=== PATIENT | female | born 1950 | race Caucasian/White ===

== ENCOUNTER 2017-03-18 17:19 | Emergency (ER) | payer BC, OTHER ==
[~2017-03-18] VITALS: Ht 165.1 cm; Wt 70.0 kg
[~2017-03-18 17:19] MED LIST: B/P MED; ESTR.625 PO; PAIN MEDS
[2017-03-18 17:27] VITALS: BP 103/50; PULSE 66; O2SAT 96
[2017-03-18] MEDS ORDERED: SODIUM CHLOR 0.9% 1000 ML INJ 1,000 ML IV SCH (18:08)
[2017-03-18] MEDS ORDERED: ACETAMINOPHEN 500 MG CPLT PO ONE (18:15)
[2017-03-18] MEDS ORDERED: SODIUM CHLORIDE 0.9% FLUSH 10 ML FLUSH IV FLUSH PRN (18:15)
[2017-03-18] MEDS ORDERED: ONDANSETRON HCL 4 MG/2 ML VIAL IV PUSH ONE (18:15)
[2017-03-18] MEDS ORDERED: TETANUS/DIPHTHERIA TOXOID ADULT 0.5 ML VIAL IM ONE (18:15)
[2017-03-18] MEDS ORDERED: LIDOCAINE HCL 1% 50 ML VIAL INFIL ONE (18:15)
[2017-03-18 18:19] VITALS: BP 95/63; PULSE 65; O2SAT 93
[2017-03-18] MEDS ORDERED: AMLO2.5T PO (18:20)
[2017-03-18] MEDS ORDERED: BUPR100CR PO (18:20)
[2017-03-18] MEDS ORDERED: LEVO25TA4 PO (18:20)
[2017-03-18] MEDS ORDERED: WARF-23 PO (18:20)
[2017-03-18] MEDS ORDERED: METO25TA3 PO (18:20)
[2017-03-18] MEDS ORDERED: LISI2.5T3 PO (18:20)
[2017-03-18] MEDS ORDERED: LEXA20TA PO (18:20)
[2017-03-18] MEDS ORDERED: NEXI40CA PO (18:20)
--- NOTE | 2017-03-18 18:23 | PD ---
HPI Chief Complaint: Fall Time Seen by Provider: 18:00 Travel History International Travel<30 days: No Contact w/Intl Traveler<30days: No Traveled to known affect area: No History of Present Illness HPI Patient comes in for evaluation status post slip and fall at home. Patient states she was rinsing conditioner out of her hair falling backwards hitting her head. Patient complaining of headache, dizziness, and tailbone pain. Patient thinks she may have lost consciousness briefly after hitting her head. Patient denies any neck pain, chest pain pre-or post fall, shortness of breath, nausea or tingling anywhere, nausea, vomiting, abdominal pain, loss of bowel or bladder, or numbness or tingling anywhere. Patient states she is on Coumadin less and had her INR checked last 2 weeks ago found be 1.6. Patient reports her last tetanus shot was proximal to 7 years ago. Patient tried washing her hair prior to coming to the emergency department and went to an urgent care and was redirected to the emergency department. PFSH Past Medical History Hx Anticoagulant Therapy: Yes (coumadin) Atrial Fibrillation: Yes Cardiovascular Problems: Yes (afib) Hypertension: Yes Tetanus Vaccination: > 5 Years Tubal Ligation: Yes Past Surgical History Appendectomy: Yes Cholecystectomy: Yes Coronary Artery Bypass Graft: Yes (x2 ) Hysterectomy: Yes Social History Alcohol Use: Yes (occ) Tobacco Use: Yes (occ) Substance Use: No Allergies-Medications (Allergen,Severity, Reaction): Coded Allergies: No Known Allergies (Unverified , 03/18/17) Reported Meds & Prescriptions Reported Meds & Active Scripts Active Reported Nexium (Esomeprazole DR) 40 Mg Capdr 40 Mg PO DAILY Wellbutrin SR 12 HR (Bupropion HCl) 100 Mg Tab 100 Mg PO Q12HR Lexapro (Escitalopram Oxalate) 20 Mg Tab 20 Mg PO DAILY Amlodipine (Amlodipine Besylate) 2.5 Mg Tab Unknown Dose PO DAILY Levothyroxine (Levothyroxine Sodium) 25 Mcg Tab 25 Mcg PO DAILY Warfarin 5 Mg Tab 5 Mg PO DAILY Lisinopril 2.5 Mg Tab Unknown Dose PO DAILY Metoprolol Tartrate 25 Mg Tab 25 Mg PO DAILY [Pain Meds] [B/P Med] DAILY Review of Systems Except as stated in HPI: all other systems reviewed are Neg Physical Exam Narrative GENERAL: Well-developed, well nourished, in no acute distress, and non-ill appearing. SKIN: Left occipital lobe laceration. He skin tears noted bilateral upper extremities that are nonrepairable. HEAD: Atraumatic. Normocephalic. EYES: Pupils equal and round. EOMI. No scleral icterus. No injection or drainage. ENT: No nasal bleeding or discharge. Mucous membranes pink and moist. NECK: Trachea midline. No midline tenderness or crepitus of the cervical spine. Supple. No nuclear rigidity. CARDIOVASCULAR: Regular rate and rhythm. No murmur appreciated. RESPIRATORY: No accessory muscle use. No respiratory distress. Clear to auscultation. Breath sounds equal bilaterally. MUSCULOSKELETAL: No obvious deformities. No clubbing. No cyanosis. No edema. Full range of motion. Shoulder:FROM equal BL with passive flexion, extension, Abduction, Adduction, internal/external rotation, and pronation/supination. Sensation equal BL deltoid muscles. Pulses equal BL distal to injury. Capillary refill less than 2 seconds distal to injury and equal BL. FROM distal to injury and equal BL. Strength distal to injury equal BL. NV intact distal to injury equal BL. Flexion and extension of thumb equal BL. Equal strength and movement with abduction/adductions of BL fingers. Teacher Associate strength equal BL. Patient reports tenderness over sacrum. There is no bruising or crepitus. No tenderness or crepitus throughout the spinal column. NEUROLOGICAL: Awake and alert. No obvious cranial nerve deficits. Motor grossly within normal limits. Normal speech. PSYCHIATRIC: Appropriate mood and affect; insight and judgment normal. Data Data Last Documented VS Vital Signs Date Time Temp Pulse Resp B/P Pulse Ox O2 Delivery O2 Flow Rate FiO2 03/18/17 20:18 65 20 114/69 94 Room Air Orders Basic Metabolic Panel (Bmp) (03/18/17 18:08) Complete Blood Count With Diff (03/18/17 18:08) Prothrombin Time / Inr (Pt) (03/18/17 18:08) Act Partial Throm Time (Ptt) (03/18/17 18:08) Iv Access Insert/Monitor (03/18/17 18:08) Ecg Monitoring (03/18/17 18:08) Oximetry (03/18/17 18:08) Sodium Chlor 0.9% 1000 Ml Inj (Ns 1000 M (03/18/17 18:08) Sodium Chloride 0.9% Flush (Ns Flush) (03/18/17 18:15) Ondansetron Inj (Zofran Inj) (03/18/17 18:15) Acetaminophen (Tylenol) (03/18/17 18:15) Ct Brain W/O Iv Contrast(Rout) (03/18/17 ) Ct Cerv Spine W/O Contrast (03/18/17 ) Apply Cervical Collar (03/18/17 18:08) Tetanus/Diphtheria Tox Adult (Tetanus/Di (03/18/17 18:15) Lidocaine 1% Inj (50 Ml) (Xylocaine 1% I (03/18/17 18:15) Sacrum And Coccyx (03/18/17 ) Alcohol (Ethanol) (03/18/17 19:09) Labs Laboratory Tests Test 03/18/17 19:08 White Blood Count 12.2 TH/MM3 Red Blood Count 3.78 MIL/MM3 Hemoglobin 12.3 GM/DL Hematocrit 36.7 % Mean Corpuscular Volume 96.9 FL Mean Corpuscular Hemoglobin 32.4 PG Mean Corpuscular Hemoglobin 33.4 % Concent Red Cell Distribution Width 14.5 % Platelet Count 335 TH/MM3 Mean Platelet Volume 8.5 FL Neutrophils (%) (Auto) 69.4 % Lymphocytes (%) (Auto) 19.8 % Monocytes (%) (Auto) 9.5 % Eosinophils (%) (Auto) 0.7 % Basophils (%) (Auto) 0.6 % Neutrophils # (Auto) 8.5 TH/MM3 Lymphocytes # (Auto) 2.4 TH/MM3 Monocytes # (Auto) 1.2 TH/MM3 Eosinophils # (Auto) 0.1 TH/MM3 Basophils # (Auto) 0.1 TH/MM3 CBC Comment DIFF FINAL Differential Comment Prothrombin Time 16.5 SEC Prothromb Time International 1.5 RATIO Ratio Activated Partial 34.3 SEC Thromboplast Time Sodium Level 138 MEQ/L Potassium Level 4.1 MEQ/L Chloride Level 102 MEQ/L Carbon Dioxide Level 23.7 MEQ/L Anion Gap 12 MEQ/L Blood Urea Nitrogen 22 MG/DL Creatinine 1.39 MG/DL Estimat Glomerular Filtration 38 ML/MIN Rate Random Glucose 71 MG/DL Calcium Level 9.1 MG/DL Ethyl Alcohol Level 117 MG/DL MDM Medical Decision Making Medical Screen Exam Complete: Yes Emergency Medical Condition: Yes Interpretation(s) Sacrum X-rays read by the radiologist shows: No fracture identified. CT the cervical spine read by the radiologist shows: 1. No evidence of fracture. 2. Multilevel degenerative findings. CT the head read by radiologist shows: No acute intracranial findings. Differential Diagnosis Fracture, strain, contusion, intact cranial hemorrhage, head injury, laceration , abrasion, electrolyte abnormality, other Narrative Course Patient presents with closed head injury. There was no evidence of cranial or intracranial injury noted on CT of the head and no evidence of fracture or injury to cervical spine on C-spine CT. The patient has been behaving normally and no notable altered mental status. [place] score of 15. The neurologic exam is normal. The patient is awake and aware and motor sensory exams are normal. There is no clinical evidence to support intracranial injury or bleed. The patient suffered laceration to scalp. There was no evidence to suggest foreign bodies. Visual and tactile exams were unremarkable. There was no evidence of neurovascular injury as well. The patient was irrigated with copious sterile normal saline and primary repair was performed. Please see procedure note. The patient was given signs and symptom warnings for infection, such as increasing pain, redness, swelling, associated heat, pus or fever. The patient was given instructions for timely follow up and for removal. The patient agreed with plan of care. Patient in no obvious distress upon re-evaluation. All pertinent laboratory/ Radiology result(s) discussed with patient/family. Discussed patient with Dr. French, who saw and evaluated patient and agree with plan of care and disposition. Any questions/concerns in reference to patient diagnosis/ condition discussed and clarified prior to patient's discharge. Reinforced sheer importance of close follow up with patient's primary physician or primary care clinic. Instructed patient to return to ED immediately, if symptoms return/ worsen. Pt showed understanding of above instructions. Further instructions and recommendations were detailed in discharge paperwork. Pt ambulated without difficulty out of ED at discharge with her . Procedures Procedure Narrative LACERATION REPAIR LOCATION: Left occipital lobe LENGTH: Approximate 1.5 cm in total length NUMBER OF STITCHES/MAGALI: 3 magali REPAIR: Verbal consent was obtained. The area of the laceration was cleaned and prepped. The laceration was infiltrated with lidocaine without epi. The wound was copiously irrigated and explored without evidence of foreign body, bony involvement, ligament injury, tendon injury, or neurovascular injury. The wound was closed using magali. This was a single layer repair. A sterile dressing was applied by nurse. The patient was advised to keep the affected area as clean and dry as possible using soap and water. There were no complications. Patient tolerated the procedure well. Diagnosis Primary Impression: Head injury Qualified Code: S09.90XA - Head injury, initial encounter Additional Impressions: Scalp laceration Qualified Code: S01.01XA - Scalp laceration, initial encounter Subtherapeutic international normalized ratio (INR) Alcohol intoxication Qualified Code: F10.920 - Alcohol intoxication, uncomplicated Abrasions of multiple sites Patient Instructions: Abrasion (ED), Alcohol Intoxication (ED), General Instructions, Head Injury (ED), Laceration (ED), Staple Care (ED) Additional Instructions: Follow-up with your primary care physician in 3-5 days for reevaluation. Use [id number] Tylenol as needed for pain. Follow instructions on the packaging. Keep wound dry and clean as possible using soap and water. Use Neosporin to promote healing. Have magali removed in 5-7 days. Sit on a hemorrhoid pillow as needed for comfort to decrease pain to your tailbone. Return to the emergency department if symptoms get worse. Disposition: 01 DISCHARGE HOME Condition: Stable Dav Forte Mar 18, 2017 18:23
--- NOTE | 2017-03-18 18:40 | RADRPT ---
EXAM DATE/TIME: 03/18/2017 18:26 [facility] COMPARISON: No previous studies available for comparison. INDICATIONS : Tailbone pain post fall today MEDICAL HISTORY : None. SURGICAL HISTORY : None. ENCOUNTER: Initial ACUITY: 1 day PAIN SCORE: 10/10 LOCATION: Sacrum and coccyx FINDINGS: 3 views of the sacrum and coccyx. No evidence of bowel dilatation. No free air or free fluid. Appendi x within normal limits. Prominent degenerative findings of the lumbosacral junction CONCLUSION: No fracture identified. Kenny Dalton MD on March 18, 2017 at 18:37 Board Certified Radiologist. This report was verified electronically.
--- NOTE | 2017-03-18 18:53 | RADRPT ---
EXAM DATE/TIME: 03/18/2017 18:35 [facility] COMPARISON: No previous studies available for comparison. INDICATIONS : Fall with head injury, the back of her head. RADIATION DOSE: 35.40 CTDIvol (mGy) MEDICAL HISTORY : Cardiovascular disease. Hypertension. Afib SURGICAL HISTORY : Appendectomy. Cholecystectomy.Tubal ENCOUNTER: Initial ACUITY: 1 day PAIN SCALE: 5/10 LOCATION: Bilateral cranial TECHNIQUE: Multiple contiguous axial images were obtained of the head. Using automated exposure control and adj ustment of the mA and/or kV according to patient size, radiation dose was kept as low as reasonably a chievable to obtain optimal diagnostic quality images. FINDINGS: CEREBRUM: The ventricles are normal for age. No evidence of midline shift, mass lesion, hemorrhage or acute in farction. No extra-axial fluid collections are seen. POSTERIOR FOSSA: The cerebellum and brainstem are intact. The 4th ventricle is midline. The cerebellopontine angle i s unremarkable. EXTRACRANIAL: The visualized portion of the orbits is intact. SKULL: The calvaria is intact. No evidence of skull fracture. Left parietal scalp hematoma. CONCLUSION: No acute intracranial findings. Kenny Dalton MD on March 18, 2017 at 18:47 Board Certified Radiologist. This report was verified electronically.
--- NOTE | 2017-03-18 18:58 | RADRPT ---
EXAM DATE/TIME: 03/18/2017 18:35 [facility] COMPARISON: No previous studies available for comparison. INDICATIONS : Fall with injury to the back of her head. RADIATION DOSE: 18.06 CTDIvol (mGy) MEDICAL HISTORY : Cardiovascular disease. Hypertension. Afib SURGICAL HISTORY : Hysterectomy. Appendectomy.Tubal ENCOUNTER: Initial ACUITY: 1 day PAIN SCALE: 5/10 LOCATION: Bilateral neck TECHNIQUE: Volumetric scanning of the cervical spine was performed. Multiplanar reconstructions in the sagittal, coronal and oblique axial planes were performed. Using automated exposure control and adjustment o f the mA and/or kV according to patient size, radiation dose was kept as low as reasonably achievable to obtain optimal diagnostic quality images. FINDINGS: VERTEBRAE: Normal vertebral body height. No evidence of fracture. ALIGNMENT: 4 mm anterolisthesis C3 on C4. 2 mm anterolisthesis C7 on T1. C2-C3: Moderate severity bilateral facet arthrosis. No evidence of focal disc protrusion. Central canal norm al diameter. Neural foraminal diameters within normal limits. C3-C4: Severe left-sided facet arthrosis. Broad-based disc osteophyte complex. Severe left neural foraminal narrowing. Mild central canal narrowing. C4-C5: Broad-based disc osteophyte complex. Moderate bilateral facet arthrosis. Mild bilateral neural forami nal narrowing. Mild central canal narrowing. C5-C6: Broad-based disc osteophyte complex. Moderate right neural foraminal narrowing. Mild left neural fora jace narrowing. Mild central canal narrowing. C6-C7: Broad-based disc osteophyte complex. No evidence of focal disc protrusion. Central canal normal diame ter. Neural foraminal diameters within normal limits. C7-T1: The bony spinal canal is normal in size. No evidence of disc bulge or herniation. The neural forami na are bilaterally patent. CONCLUSION: 1. No evidence of fracture. 2. Multilevel degenerative findings. Kenny Dalton MD on March 18, 2017 at 18:51 Board Certified Radiologist. This report was verified electronically.
[2017-03-18 19:33] LABS: AUTOMATED NEUTROPHIL # 8.5 TH/MM3 (1.8-7.7); BASOPHIL # 0.1 TH/MM3 (0-0.2); BASOPHIL % 0.6 % (0.0-2.0); EOSINOPHIL # 0.1 TH/MM3 (0-0.4); EOSINOPHIL % 0.7 % (0.0-4.0); HEMATOCRIT 36.7 % (35.0-46.0); HEMO FLAGS DIFF FINAL; LYMPH % 19.8 % (9.0-44.0); LYMPHOCYTE # 2.4 TH/MM3 (1.0-4.8); MEAN CELL VOLUME 96.9 FL (80.0-100.0); MEAN CORPUSCULAR HEMOGLOBIN 32.4 PG (27.0-34.0); MEAN CORPUSCULAR HGB CONC 33.4 % (32.0-36.0); MONO % 9.5 % (0.0-8.0); NEUT % 69.4 % (16.0-70.0); PLATELET COUNT 335 TH/MM3 (150-450); RED BLOOD COUNT 3.78 MIL/MM3 (4.00-5.30); RED CELL DISTRIBUTION WIDTH 14.5 % (11.6-17.2); WHITE BLOOD COUNT 12.2 TH/MM3 (4.0-11.0)
[2017-03-18 19:41] LABS: APTT (PATIENT) 34.3 SEC (24.3-30.1); INTERNATIONAL NORMALIZED RATIO 1.5 RATIO; PROTHROMBIN TIME - PATIENT 16.5 SEC (9.8-11.6)
--- NOTE | 2017-03-18 19:59 | PD ---
Data Data Last Documented VS Vital Signs Date Time Temp Pulse Resp B/P Pulse Ox O2 Delivery O2 Flow Rate FiO2 03/18/17 18:01 64 16 96 Room Air 03/18/17 17:27 103/50 Orders Basic Metabolic Panel (Bmp) (03/18/17 18:08) Complete Blood Count With Diff (03/18/17 18:08) Prothrombin Time / Inr (Pt) (03/18/17 18:08) Act Partial Throm Time (Ptt) (03/18/17 18:08) Iv Access Insert/Monitor (03/18/17 18:08) Ecg Monitoring (03/18/17 18:08) Oximetry (03/18/17 18:08) Sodium Chlor 0.9% 1000 Ml Inj (Ns 1000 M (03/18/17 18:08) Sodium Chloride 0.9% Flush (Ns Flush) (03/18/17 18:15) Ondansetron Inj (Zofran Inj) (03/18/17 18:15) Acetaminophen (Tylenol) (03/18/17 18:15) Ct Brain W/O Iv Contrast(Rout) (03/18/17 ) Ct Cerv Spine W/O Contrast (03/18/17 ) Apply Cervical Collar (03/18/17 18:08) Tetanus/Diphtheria Tox Adult (Tetanus/Di (03/18/17 18:15) Lidocaine 1% Inj (50 Ml) (Xylocaine 1% I (03/18/17 18:15) Sacrum And Coccyx (03/18/17 ) Alcohol (Ethanol) (03/18/17 19:09) Labs Laboratory Tests Test 03/18/17 19:08 White Blood Count 12.2 TH/MM3 Red Blood Count 3.78 MIL/MM3 Hemoglobin 12.3 GM/DL Hematocrit 36.7 % Mean Corpuscular Volume 96.9 FL Mean Corpuscular Hemoglobin 32.4 PG Mean Corpuscular Hemoglobin 33.4 % Concent Red Cell Distribution Width 14.5 % Platelet Count 335 TH/MM3 Mean Platelet Volume 8.5 FL Neutrophils (%) (Auto) 69.4 % Lymphocytes (%) (Auto) 19.8 % Monocytes (%) (Auto) 9.5 % Eosinophils (%) (Auto) 0.7 % Basophils (%) (Auto) 0.6 % Neutrophils # (Auto) 8.5 TH/MM3 Lymphocytes # (Auto) 2.4 TH/MM3 Monocytes # (Auto) 1.2 TH/MM3 Eosinophils # (Auto) 0.1 TH/MM3 Basophils # (Auto) 0.1 TH/MM3 CBC Comment DIFF FINAL Differential Comment Prothrombin Time 16.5 SEC Prothromb Time International 1.5 RATIO Ratio Activated Partial 34.3 SEC Thromboplast Time MDM Supervised Visit with MONIKA: Yes Narrative Course I, Dr. French, have reviewed the advance practice practioner's documentation and am in agreement, met with the patient face to face, made the diagnosis, and the medical decision making was done by me. *My assessment and Findings: Patient here status post mechanical trip and fall with hitting the head. Unknown LOC, stating it happened so fast. Patient complains of pain to the occiput, feeling slightly lightheaded. She also complains of pain to the sacrum. On exam she has a laceration to the back of her head, this is hemostatic without active bleeding. She is on Coumadin for history of A. fib. Differential includes scalp laceration, closed head injury, skull fracture, cervical spine injury, sacral or coccygeal fracture. Imaging of the head, neck and sacrum/coccyx were negative. INR was actually slightly subtherapeutic. Laceration stapled and patient discharged home Tere French MD Mar 18, 2017 19:59 redirected to the emergency department Tere French MD Mar 18, 2017 19:59
[2017-03-18 20:18] VITALS: BP 114/69; PULSE 65; RESP 20; O2SAT 94
[2017-03-18 20:25] LABS: BICARBONATE 23.7 MEQ/L (21.0-32.0)
[2017-03-18 20:27] LABS: POTASSIUM 4.1 MEQ/L (3.5-5.1)
== END 2017-03-18 21:56 | disposition home or self-care (01) ==
LOC: NEPE 17:19
DX: S09.90XA Unspecified injury of head, initial encounter (principal); S01.01XA Laceration without foreign body of scalp, initial encounter; F10.929 Alcohol use, unspecified with intoxication, unspecified; I10 Essential (primary) hypertension; I48.91 Unspecified atrial fibrillation; W18.2XXA Fall in (into) shower or empty bathtub, initial encounter; Y93.E1 Activity, personal bathing and showering; Y92.002 Bathroom of unspecified non-institutional (private) residence as the place of occurrence of the external cause; Z23 Encounter for immunization; Z95.1 Presence of aortocoronary bypass graft; Z79.01 Long term (current) use of anticoagulants; Y90.5 Blood alcohol level of 100-119 mg/100 ml
CPT/HCPCS: 12001; 70450; 72125; 72220; 80048; 80307; 85025; 85610; 85730; 90471; 90714; 96361; 96374; 99285; J2405; J7030